=== PATIENT | female | born 1965 | race Caucasian/White ===

== ENCOUNTER 2021-06-27 15:29 | Emergency (ER) | payer BC ==
[2021-06-27 18:01] VITALS: BP 141/98; PULSE 76; TEMP 98; BMI 24.0
[2021-06-27 19:28] LABS: HEMATOCRIT 42.3 % (32.4-45.2); HEMOGLOBIN 14.5 GM/dl (10.7-15.3); MCH 30.4 pg (25.7-33.7); MCHC 34.3 g/dl (32.0-36.0); MEAN CELL VOLUME 88.6 fl (80-96); MEAN PLT VOLUME 7.4 fl (7.5-11.1); PLATELET COUNT 316 10^3/uL (134-434); RBC 4.78 M/mm3 (3.60-5.2); RDW 12.2 % (11.6-15.6); WHITE BLOOD COUNT 7.5 K/mm3 (4.0-10.8)
[2021-06-27 19:33] LABS: HCG,QUALITATIVE URINE Negative
[2021-06-27 20:34] LABS: ALBUMIN 3.9 g/dl (3.4-5.0); CALCIUM 8.7 mg/dl (8.5-10); CREATININE 0.8 mg/dl (0.55-1.3); TOT PROT 6.8 g/dl (6.4-8.2)
[2021-06-27 20:52] LABS: PLATELET ESTIMATE ADEQUATE
== END 2021-06-27 21:16 | disposition home or self-care (01) ==
LOC: FER 15:29
DX: N93.9 Abnormal uterine and vaginal bleeding, unspecified (principal)
CPT/HCPCS: 36415; 76830-TC; 80053; 81003; 81015; 84703; 85025; 87086; 99284-25

== ENCOUNTER 2023-10-09 00:12 | Emergency (ER) | payer BC ==
[2023-10-09] MEDS ORDERED: SODIUM CHLORIDE 1,000 ML IV ONE (00:30)
[2023-10-09] MEDS ORDERED: ONDANSETRON 4 MG/2 ML VIAL IVPUSH ONE (00:30)
[2023-10-09] MEDS ORDERED: KETOROLAC TROMETHAMINE 30 MG/1 ML VIAL IVPUSH ONE (00:30)
[2023-10-09] MEDS ORDERED: KETOROLAC TROMETHAMINE 30 MG/1 ML VIAL ONE (00:33)
[2023-10-09] MEDS ORDERED: ONDANSETRON 4 MG/2 ML VIAL ONE (00:33)
[2023-10-09 00:43] VITALS: BP 146/75; PULSE 65; RESP 18; TEMP 98.6; BMI 24.0
[2023-10-09 01:06] LABS: PH,URINE 8.5 (5.0-8.0); URINE APPEARANCE TURBID; URINE BILIRUBIN NEGATIVE (NEGATIVE); URINE COLOR YELLOW; URINE GLUCOSE (UA) NEGATIVE (NEGATIVE); URINE KETONE TRACE (NEGATIVE); URINE LEUK ESTERASE NEGATIVE (NEGATIVE); URINE NITRITE NEGATIVE (NEGATIVE); URINE PROTEIN TRACE (NEGATIVE); URINE UROBILINOGEN 0.2 mg/dL (0.2-1.0)
[2023-10-09 01:15] LABS: BASO % 0.3 % (0-2.0); EOS % 0.3 % (0-4.5); HEMATOCRIT 40.3 % (32.4-45.2); HEMOGLOBIN 13.8 GM/dL (10.7-15.3); LYMPH % 6.8 % (8-40); MCH 29.7 pg (25.7-33.7); MCHC 34.3 g/dl (32.0-36.0); MEAN CELL VOLUME 86.7 fl (80-96); MEAN PLT VOLUME 7.2 fl (7.5-11.1); NEUT % 89.6 % (42.8-82.8); PLATELET COUNT 365 10^3/uL (134-434); RBC 4.65 M/mm3 (3.60-5.2); RDW 12.8 % (11.6-15.6); WHITE BLOOD COUNT 12.6 K/mm3 (4.0-10.0)
[2023-10-09 02:49] LABS: ALK PHOS 42 U/L (45-117); ANION GAP 4 mmol/L (4-13); BLOOD UREA NITROGEN 19.9 mg/dL (7-18); CALCIUM 9.2 mg/dL (8.5-10.1); CHLORIDE 103 mmol/L (98-107); CO2 27 mmol/L (21-32); CREATININE 1.3 mg/dL (0.55-1.3); GLUCOSE,RANDOM 142 mg/dL (74-106); POTASSIUM 9.3 mmol/L (3.5-5.1); SGOT/AST 76 U/L (15-37); SGPT/ALT 28 U/L (13-61); SODIUM 133 mmol/L (136-145); TOT PROT 8.4 g/dl (6.4-8.2)
[2023-10-09] MEDS ORDERED: morphine CARPU-JECT 4 MG/1 ML DISP.SYRIN IVPUSH ONE (03:18)
[2023-10-09] MEDS ORDERED: morphine SULFATE 4 MG/ML VIAL ONE (03:20)
[2023-10-09 04:12] LABS: POTASSIUM 4.3 mmol/L (3.5-5.1)
[2023-10-09 04:14] LABS: CALCIUM 8.8 mg/dL (8.5-10.1)
[2023-10-09 04:15] LABS: ALBUMIN 3.8 g/dl (3.4-5.0); BLOOD UREA NITROGEN 17.7 mg/dL (7-18)
[2023-10-09 04:18] LABS: CREATININE 1.1 mg/dL (0.55-1.3)
[2023-10-09 04:19] LABS: BILIRUBIN,TOTAL 1.4 mg/dL (0.2-1); TOT PROT 7.1 g/dl (6.4-8.2)
== END 2023-10-09 06:12 | disposition home or self-care (01) ==
LOC: FER 00:12
PROC: 3E0333Z Introduction of Anti-inflammatory into Peripheral Vein, Percutaneous Approach (ICD-10-PCS; principal; 2023-10-09)
PROC: 3E033GC Introduction of Other Therapeutic Substance into Peripheral Vein, Percutaneous Approach (ICD-10-PCS; 2023-10-09)
PROC: 3E033GC Introduction of Other Therapeutic Substance into Peripheral Vein, Percutaneous Approach (ICD-10-PCS; 2023-10-09)
PROC: 3E0337Z Introduction of Electrolytic and Water Balance Substance into Peripheral Vein, Percutaneous Approach (ICD-10-PCS; 2023-10-09)
DX: R10.32 Left lower quadrant pain (principal); R61 Generalized hyperhidrosis; K92.0 Hematemesis
CPT/HCPCS: 36415; 74176-TC; 80053; 81003; 85025; 87086; 99284-25